=== PATIENT | female | born 1985 | race Hispanic/Latino ===

== ENCOUNTER 2019-04-10 14:00 | Day surgery (SDC) | payer OTHER, SELFPAY ==
[~2019-04-10 14:00] MED LIST: ISOVUE-370 76%-LOCM 1 ML ONE; Iopamidol 370 76% 50 ML VIAL FS ONE
[2019-04-10 14:25] LABS: #Basophils 0.1 thou/uL (0.0-0.2); #Eosinphils 0.1 thou/uL (0.0-0.7); #Lymphocytes 1.8 thou/uL (1.20-3.40); #Monocytes 0.5 thou/uL (0.11-0.59); #Neutrophils 6.4 thou/uL (1.40-6.50); %Basophils 0.8 % (0.0-1.0); %Lymphocytes 19.9 % (21.0-51.0); %Monocytes 5.6 % (0.0-10.0); %Neutrophils 72.6 % (42.0-75.0); Mean Corpuscular HGB CONC 31.7 g/dL (32.0-36.0); Mean Corpuscular Hemoglobin 28.2 pg (27.0-31.0); Mean Platelet Volume 8.8 fL (7.4-10.4); Platelet Count 313 thou/uL (130-400); RBC Distribution Width 13.3 % (11.5-14.5); Red Blood Cell (RBC) Count 4.27 mill/uL (4.20-5.40); White Blood Cell (WBC) Count 8.8 thou/uL (4.8-10.8)
[2019-04-10] MEDS ORDERED: Rocuronium Bromide 10 MG/ML (10ML VIAL) ONE (14:29)
[2019-04-10] MEDS ORDERED: Glycopyrrolate 0.2 MG/ML 5 ML SYRINGE ONE (14:29)
[2019-04-10] MEDS ORDERED: Ketorolac Tromethamine 30 MG/ML VIAL ONE (14:29)
[2019-04-10] MEDS ORDERED: Succinylcholine Chloride 20 MG/ML 10 ml SYRINGE FS ONE (14:29)
[2019-04-10] MEDS ORDERED: Ondansetron PF 4 MG/2 ML Vial ONE ×2 (14:29→16:55)
[2019-04-10] MEDS ORDERED: PROPOFOL 200 MG/20 ML VIAL ONE (14:29)
[2019-04-10 14:37] LABS: BHCG - Serum Negative (NEGATIVE); Pregs Control Background? CLEAR/WHITE (CLR/WHITE); Pregs Control Bar Appear? YES (CONTROL BAR)
[2019-04-10 14:46] LABS: ALT (SGPT) 10 U/L (8-55); AST (SGOT) 12 U/L (5-34); Albumin 4.3 g/dL (3.5-5.0); Alkaline Phosphatase 54 U/L (40-150); Anion Gap 9 mmol/L (10-20); BUN (Urea Nitrogen) 7 mg/dL (7.0-18.7); Bilirubin, Total 0.4 mg/dL (0.2-1.2); Calc. Creatinine Clearance 0 mL/min (70-130); Calcium 9.2 mg/dL (7.8-10.44); Carbon Dioxide 27 mmol/L (22-29); Chloride 105 mmol/L (98-107); Estimated GFR-MDRD Greater than 90; Globulin 2.5 g/dL (2.4-3.5); Glucose 88 mg/dL (70-105); Lipase 43 U/L (8-78); Potassium 4.1 mmol/L (3.5-5.1); Protein, Total 6.8 g/dL (6.0-8.3); Sodium 137 mmol/L (136-145)
[2019-04-10 14:54] LABS: Bilirubin Negative (Negative); Blood, Urine Negative (Negative); Clarity Clear (Clear); Glucose, Urine (Dipstick) Normal (Negative); Leukocyte Negative Leu/uL (Negative); Nitrite Negative (Negative); Protein, Urine (Dipstick) Negative (Neg-Trace); Urobilinogen Normal mg/dL (Less than 2)
[2019-04-10] MEDS ORDERED: Morphine 4 MG/ML VIAL ONE (16:55)
--- NOTE | 2019-04-10 19:51 | CT ---
CT OF THE ABDOMEN AND PELVIS WITH IV CONTRAST: 04/10/19 INDICATION: Abdominal pain in the right lower quadrant. COMPARISON: CT of the abdomen and pelvis dated 09/09/15 without contrast. FINDINGS: There is a 9.6 mm dilated appendix in the right lower quadrant with periappendiceal fat stranding shari picious for a noncomplicated acute appendicitis. There is a hypodensity involving the right hepatic lobe adjacent to the falciform ligament with inter nal traversing hepatic vasculature suspicious for area of focal fatty infiltration. There is a tiny s ubcentimeter cyst within the right hepatic dome. Pancreas, adrenal glands, and kidneys are normal appearing. Spleen is normal appearing. There is no e vidence of a drainable fluid collection. Mild free fluid is seen within the pelvis. The bladder is pa rtially decompressed. No acute osseous abnormality is evident. IMPRESSION: 1. Findings of noncomplicated acute appendicitis. 2. Small free fluid in the pelvis may be reactive in nature. No drainable fluid collection is ev ident. 3. Hypodensities seen within the right hepatic lobe adjacent to the falciform ligament suspiciou s for focal fatty infiltration. Findings were called to the ER to be described for Dr. Bateman at 7:02 p.m. on 04/10/19. Code CR POS: OSMANY
[2019-04-10] MEDS ORDERED: Bupivacaine/Epinephrine 0.25% 30 ML VIAL ONE (20:03)
[2019-04-10] MEDS ORDERED: Fentanyl 100 MCG/2 ML VIAL ONE ×2 (20:17→22:21)
[2019-04-10] MEDS ORDERED: Midazolam HCl 2 mg/2 ml Vial ONE (20:17)
[2019-04-10] MEDS ORDERED: MEROPENEM 1 GM/50 ML 1 GM in Premix Bag 1 BAG IVPB SCH (20:45)
[2019-04-10] MEDS ORDERED: HYDROcodone/Acetaminophen 5/325 mg Tablet ONE (22:33)
--- NOTE | 2019-04-11 01:05 | HP ---
CHIEF COMPLAINT: Abdominal pain. HISTORY OF PRESENT ILLNESS: Ms. Carrera is a 33-year-old woman, who developed sharp abdominal pain last night, mostly in the right lower quadrant area. It became progressively worse and so she decided to come to the emergency room. She was not able to stand up straight due to the pain in her abdomen. She had nausea but no vomiting, and no decreased appetite. She had no fevers or chills. No diarrhea or change in her bowel habits. Nothing she tried at home alleviated the pain. PAST MEDICAL HISTORY: None. PAST SURGICAL HISTORY: x4 and robotic laparoscopic cholecystectomy by Dr. Ruano 2 years ago. FAMILY HISTORY: Noncontributory. SOCIAL HISTORY: The patient does not smoke, drink, or use illicit drugs. REVIEW OF SYSTEMS: Ten-system review of systems is negative except per HPI and a headache. PHYSICAL EXAMINATION: VITAL SIGNS: Temperature 98.3, respirations 16, 100% saturated on room air, blood pressure 112/65, and heart rate 90. GENERAL: Reveals a healthy-appearing young woman, in no acute distress. HEENT: Unremarkable. NECK: Supple without lymphadenopathy or thyroid nodules. HEART: Regular in its rate and rhythm without murmurs, rubs, or gallops. LUNGS: Clear to auscultation bilaterally. ABDOMEN: Soft and nondistended. She has a healed umbilical and Pfannenstiel incision. No palpable masses or hernias. She is very tender to palpation in the lower abdomen with rebound tenderness in the right lower quadrant on release of pressure in the left lower quadrant. No rigidity or guarding, however. EXTREMITIES: Warm, well perfused, without edema. NEURO: No focal deficits. PSYCHIATRIC: Alert, oriented, and appropriate. DIAGNOSTIC DATA: White count is normal. Electrolytes and LFTs are unremarkable , and test is negative. CT images are reviewed and I agree with the written report. Her appendix is dilated with some periappendiceal stranding. ASSESSMENT: Acute appendicitis. RECOMMENDATION: Laparoscopic appendectomy. The patient's diagnosis and recommended treatment were discussed with her in detail. Inherent risks of surgery were also discussed. These include, but are not limited to, bleeding; infection; risks of anesthesia; damage to nearby structures including bowel, blood vessels, and bladder; need for open surgery and need for other procedures. She understands and accepts these risks and wishes to proceed. Antibiotics have been ordered, and she has been posted emergently for the operating room. Job ID: [id number] MTDD
--- NOTE | 2019-04-11 07:33 | PDOC.OP ---
Operative Note - Operative Note Operative Note: PROCEDURE: Laparoscopic appendectomy. SURGEON: Leonidas Mcgregor M.D. DATE OF PROCEDURE: 04/10/2019 PREOPERATIVE DIAGNOSIS: Appendicitis. POSTOPERATIVE DIAGNOSIS: Appendicitis. HISTORY: Healthy 33-year-old woman who presented with signs and symptoms concerning for appendicitis. CT scan showed evidence of acute appendicitis and recommendation was made to proceed with laparoscopic appendectomy. DESCRIPTION OF PROCEDURE: After informed consent was obtained and appropriate antibiotics continued, the patient was taken to the operating room and placed in the supine position and general endotracheal anesthesia was administered. The bladder was decompressed with a Womack catheter and the abdomen was prepped and draped in the standard sterile fashion. Local anesthesia was infused to the skin and subcutaneous tissues superior to the umbilicus. A transverse skin incision was made and a Veress needle placed into the abdominal cavity and carbon dioxide gas insufflated without difficulty. Opening pressure was less than 5. Carbon dioxide gas was insufflated to an intra-abdominal pressure 15 and the patient tolerated this well. The Veress needle was withdrawn and a Wedderburn port advanced under direct laparoscopic vision into the abdominal cavity. Two additional ports were placed in the suprapubic and left lateral abdomen under direct laparoscopic vision after local anesthesia was infused at these sites. There were no significant adhesions. The appendix was identified and appeared inflamed but not perforated. The appendix was grasped by the mesoappendix and elevated. The mesoappendix was then sequentially ligated and divided down to the base of the appendix, which was normal in appearance and was clearly seen to be at the confluence of the tenia. Two Endoloops were placed around the base of the appendix and the appendix was divided between these Endoloops, placed into an EndoCatch bag and drawn out through the suprapubic incision. The suprapubic trocar was then replaced and the operative site was easily irrigated to clear. The suprapubic trocar was removed and the fascia closed under direct laparoscopic vision with a 0 Vicryl suture on a GraNee needle with excellent technical result. The left lateral trocar was then removed and hemostasis verified. Carbon dioxide gas was desufflated through the umbilical trocar which was then removed. The skin incisions were irrigated and additional local anesthesia infused at each site. The skin was closed with 4-0 subcuticular Monocryl sutures and Dermabond dressings were placed. The patient was extubated and taken to the recovery room in good condition. Estimated blood loss was minimal. There were no complications. SPECIMEN: Appendix.
== END 2019-04-10 23:08 | disposition home or self-care (01) ==
LOC: ERS 14:00 → SDC/OP 19:32
PROVIDERS: ATTEND Surgery
PROC: 0DTJ4ZZ Resection of Appendix, Percutaneous Endoscopic Approach (ICD-10-PCS; principal; 2019-04-10)
DX: K35.80 Unspecified acute appendicitis (principal)
CPT/HCPCS: 36415; 74177; 80053; 81003; 83690; 84703; 85025; 88304; 96361; 96374; 96375; J1885; J2185; J2250; J2270; J2405; J2704; J3010; Q9966; Q9967

== ENCOUNTER 2023-06-04 18:04 | Emergency (ER) | payer MEDICAID, SELFPAY ==
[2023-06-04 19:21] LABS: #Basophils 0.1 thou/uL (0.0-0.2); #Eosinphils 0.1 thou/uL (0.0-0.7); #Monocytes 0.5 thou/uL (0.11-0.59); #Neutrophils 4.4 thou/uL (1.40-6.50); %Basophils 0.9 % (0.0-1.0); %Lymphocytes 26.8 % (21.0-51.0); %Monocytes 6.6 % (0.0-10.0); %Neutrophils 64.6 % (42.0-75.0); Hemoglobin 11.3 g/dL (12.0-16.0); Mean Corpuscular HGB CONC 31.4 g/dL (32.0-36.0); Mean Corpuscular Hemoglobin 27.8 pg (27.0-31.0); Mean Corpuscular Volume 88.5 fl (78.0-98.0); Mean Platelet Volume 10.6 fL (7.4-10.4); Platelet Count 360 10x3/uL (130-400); RBC Distribution Width 14.4 % (11.5-14.5); Red Blood Cell (RBC) Count 4.07 mill/uL (4.20-5.40); White Blood Cell (WBC) Count 6.8 10x3/uL (4.8-10.8)
[2023-06-04 19:47] LABS: Troponin I Less than 0.010 ng/mL (< 0.028)
[2023-06-04 19:50] LABS: ALT (SGPT) 18 U/L (8-55); AST (SGOT) 17 U/L (5-34); Albumin 4.4 g/dL (3.5-5.0); Alkaline Phosphatase 48 U/L (40-110); Anion Gap 14 mmol/L (10-20); BUN (Urea Nitrogen) 11 mg/dL (7.0-18.7); Bilirubin, Total 0.2 mg/dL (0.2-1.2); Calc. Creatinine Clearance 0 mL/min (70-130); Calcium 9.6 mg/dL (7.8-10.44); Carbon Dioxide 26 mmol/L (22-29); Chloride 104 mmol/L (98-107); Estimated GFR 110; Globulin 2.7 g/dL (2.4-3.5); Glucose 94 mg/dL (70-105); Lipase 56 U/L (8-78); Potassium 3.6 mmol/L (3.5-5.1); Protein, Total 7.1 g/dL (6.0-8.3); Sodium 140 mmol/L (136-145)
[2023-06-04 19:59] LABS: BHCG - Serum Negative (NEGATIVE); Pregs Control Background? CLEAR/WHITE (CLR/WHITE); Pregs Control Bar Appear? YES (CONTROL BAR)
[2023-06-04] MEDS ORDERED: Acetaminophen 500 MG TAB ONE (20:06)
== END 2023-06-04 20:04 | disposition home or self-care (01) ==
LOC: ERS 18:04
DX: R00.2 Palpitations (principal); R07.89 Other chest pain
CPT/HCPCS: 36415; 71045; 80053; 83690; 84484; 84703; 85025; 93005

== ENCOUNTER 2025-07-15 18:29 | Emergency (ER) | payer SELFPAY ==
[2025-07-15] MEDS ORDERED: Droperidol 5 MG/2 ML VIAL ONE (21:05)
== END 2025-07-15 22:41 | disposition home or self-care (01) ==
LOC: ERS 18:29
DX: R51.9 Headache, unspecified (principal); R29.700 NIHSS score 0
CPT/HCPCS: 96374; J1790

== ENCOUNTER 2025-09-10 01:17 | Emergency (ER) | payer SELFPAY | END 2025-09-10 02:20 | disposition left against medical advice (07) | LOC: ERS 01:17 | DX: G43.909 Migraine, unspecified, not intractable, without status migrainosus (principal); M54.2 Cervicalgia; Z53.29 Procedure and treatment not carried out because of patient's decision for other reasons | CPT/HCPCS: 99282 ==